=== PATIENT | female | born 1995 | race Caucasian/White ===

== ENCOUNTER 2020-08-03 13:12 | Emergency (ER) | payer MEDICAID ==
[~2020-08-03] VITALS: Ht 152.4 cm; Wt 46.7 kg
[2020-08-03 13:28] VITALS: Ht 152.4 cm; Wt 46.7 kg
[2020-08-03 14:24] LABS: BASOPHIL % 0.3 % (0.2-1.3); PLATELET COUNT 329 x10^3mcL (179-408); RED CELL DISTRIBUTION WIDTH 14.3 % (12.3-17.7)
[2020-08-03 14:24] LABS: microscopic required? NO
[2020-08-03 14:50] LABS: UA SPECIFIC GRAVITY >=1.030 (1.005-1.035); urine erythrocyte NEGATIVE (NEGATIVE)
[2020-08-03 14:57] LABS: CALCIUM 8.1 mg/dL (8.5-10.1); CARBON DIOXIDE 25.9 mmol/L (21-32); CHLORIDE SERUM 106 mmol/L (98-107); CREATININE SERUM 0.6 mg/dL (0.6-1.0); GFR1 > 60 mL/min; GLUCOSE SERUM 91 mg/dL (74-106); POTASSIUM SERUM 3.9 mmol/L (3.5-5.1); SODIUM SERUM 141 mmol/L (136-145)
[2020-08-03 15:11] LABS: ALBUMIN 3.5 g/dL (3.4-5.0); ALKALINE PHOSPHATASE 43 U/L (46-116); ALT/SGPT 20 U/L (14-59); AST/SGOT 17 U/L (15-37); BILIRUBIN TOTAL 0.4 mg/dL (0.20-1.00); TOTAL PROTEIN, SERUM 7.1 g/dL (6.4-8.2)
[2020-08-03 16:24] VITALS: BP 110/74
== END 2020-08-03 16:24 | disposition home or self-care (01) ==
LOC: ED 13:12
PROVIDERS: Emergency Medicine
DX: R42 Dizziness and giddiness (principal); Z20.828 Contact with and (suspected) exposure to other viral communicable diseases
CPT/HCPCS: 82962; J8597; U0003